=== PATIENT | female | born 1955 | race African-American/Black ===

== ENCOUNTER 2018-02-27 01:34 | Emergency (ER) | payer OTHER ==
[~2018-02-27] VITALS: Ht 165.1 cm; Wt 72.6 kg
[2018-02-27] MEDS ORDERED: Sodium Chloride 500ML 500 ML IV ONE (01:38)
[2018-02-27 01:43] VITALS: BP 122/72
[2018-02-27] MEDS ORDERED: DILANTIN100 MG ORAL (01:43)
--- NOTE | 2018-02-27 01:50 | NUR ---
ED Nurse Note: PT WAS Brought in by ra [facility] from home c/o anxiety attack. pt stated she is hearing beeping noice x 30 mins and inability to sleep. pt states no suicidal intent, no harm to self, no harm to others.
[2018-02-27 02:14] LABS: APPEARANCE,URINE CLEAR; BASOPHILS % (AUTO) 0.7 % (0.0-2.0); BILIRUBIN, URINE NEGATIVE (NEGATIVE); COLOR,URINE PALE YELLOW; EOSINOPHILS % (AUTO) 3.5 % (0.0-3.0); GLUCOSE, URINE (UA) NEGATIVE (NEGATIVE); HEMATOCRIT 43.6 % (37.0-47.0); HEMOGLOBIN 14.8 G/DL (12.0-16.0); KETONES,URINE 1+ (NEGATIVE); LEUKOCYTE ESTERASE ,URINE 1+ (NEGATIVE); LYMPHOCYTES % (AUTO) 43.4 % (20.0-45.0); MEAN CORPUSCULAR VOLUME 98 FL (80-99); NEUTROPHILS % (AUTO) 43.4 % (45.0-75.0); NITRITE,URINE NEGATIVE (NEGATIVE); PH,URINE 8 (4.5-8.0); PLATELET COUNT 234 K/UL (150-450); PROTEIN,URINE NEGATIVE (NEGATIVE); RED BLOOD COUNT 4.45 M/UL (4.20-5.40); RED CELL DISTRIBUTION WIDTH 12.5 % (11.6-14.8); UROBILINOGEN,URINE NORMAL MG/DL (0.0-1.0)
[2018-02-27 02:26] LABS: ANION GAP 8 mmol/L (5-15); BLOOD UREA NITROGEN 11 mg/dL (7-18); CALCIUM 8.9 MG/DL (8.5-10.1); CARBON DIOXIDE 28 MMOL/L (21-32); CHLORIDE 106 MMOL/L (98-107); CREATININE 0.7 MG/DL (0.55-1.30); POTASSIUM 3.2 MMOL/L (3.5-5.1); SODIUM 142 MMOL/L (136-145)
[2018-02-27 02:30] LABS: ALANINE AMINOTRANSFERASE 24 U/L (12-78); ALBUMIN 3.8 G/DL (3.4-5.0); ALBUMIN/GLOBULIN RATIO 1.1 (1.0-2.7); ALKALINE PHOSPHATASE 144 U/L (46-116); ASPARTATE AMINO TRANSFERASE 16 U/L (15-37); BILIRUBIN,TOTAL 0.3 MG/DL (0.2-1.0)
--- NOTE | 2018-02-27 02:55 | Emergency Room Report ---
History of Present Illness General Chief Complaint: Behavioral Complaint Source: Patient Present Illness HPI Patient is a 63-year-old female brought in by EMS after increased anxiety and ringing in her ears. Patient reports of increased ringing sensation. She was noted to be she was noted to have prior history of surgical repair of arteriovenous malformation. Patient was on Dilantin for seizures. She reports having some increased headache. Denies recent trauma.She reports being compliant with her medications. Allergies: Coded Allergies: No Known Allergies (Unverified , 02/27/18) Patient History Past Medical History: see triage record, seizures Last Menstrual Period: 10 years ago Now: No Reviewed Nursing Documentation: PMH: Agreed; PSxH: Agreed Nursing Documentation-PMH Hx Neurological Problems: Yes - avm Hx Seizures: Yes Review of Systems All Other Systems: negative except mentioned in HPI Physical Exam Vital Signs Date Time Temp Pulse Resp B/P (MAP) Pulse Ox O2 Delivery O2 Flow Rate FiO2 02/27/18 01:39 97.9 92 24 122/72 98 Room Air 02/27/18 01:43 99 Sp02 EP Interpretation: reviewed, normal General Appearance: normal inspection, well appearing, no apparent distress, alert, GCS 15, non-toxic Head: atraumatic ENT: normal ENT inspection, hearing grossly normal, normal voice Neck: normal inspection, full range of motion, supple, no bony tend Respiratory: normal inspection, lungs clear, normal breath sounds, no respiratory distress, no retraction, no wheezing Cardiovascular #1: regular rate, rhythm, no edema Gastrointestinal: normal inspection, normal bowel sounds, non tender, soft, no guarding, no hernia Genitourinary: no CVA tenderness Musculoskeletal: normal inspection, back normal, normal range of motion Neurologic: normal inspection, alert, oriented x3, responsive, tick inspector III-XII nml as tested, speech normal Psychiatric: judgement/insight normal, mood/affect normal, anxious Skin: normal inspection, normal color, no rash Medical Decision Making Diagnostic Impression: Primary Impression: Headache Additional Impressions: AVM (arteriovenous malformation) Seizure disorder ER Course Patient presented for headache and ringing in her ears.. The differential diagnosis included was not limited to partial seizure, intracranial hemorrhage, anxiety, anemia among others. Because of complexity of patient's case laboratory testing and imaging studies were ordered. EKG interpreted by me showed normal sinus rhythm with a rate of [address] or T wave changes.Laboratory testing showed therapeutic Dilantin level.Patient was noted to be mildly hypokalemic was given oral potassium.Patient was noted to have increased anxiety. This resolved spontaneously. Patient was given some IV fluids. She was noted to have improvement in her symptoms. Patient calmed down her breathing and stated that she felt better. Patient was observed in the emergency department and had no recurrence of symptoms. Patient be discharged home. She is advised to follow-up with her neurologist for adjustment of her Dilantin as needed. CT imaging of the head read by radiology showed no evidence of intracranial hemorrhage with postsurgical changes and prior arteriovenous malformation changes.Patient be discharged home she is currently in stable condition. Labs Test 02/27/18 02:03 White Blood Count 4.0 K/UL (4.8-10.8) Red Blood Count 4.45 M/UL (4.20-5.40) Hemoglobin 14.8 G/DL (12.0-16.0) Hematocrit 43.6 % (37.0-47.0) Mean Corpuscular Volume 98 FL (80-99) Mean Corpuscular Hemoglobin 33.3 PG (27.0-31.0) Mean Corpuscular Hemoglobin Concent 34.0 G/DL (32.0-36.0) Red Cell Distribution Width 12.5 % (11.6-14.8) Platelet Count 234 K/UL (150-450) Mean Platelet Volume 6.3 FL (6.5-10.1) Neutrophils (%) (Auto) 43.4 % (45.0-75.0) Lymphocytes (%) (Auto) 43.4 % (20.0-45.0) Monocytes (%) (Auto) 9.0 % (1.0-10.0) Eosinophils (%) (Auto) 3.5 % (0.0-3.0) Basophils (%) (Auto) 0.7 % (0.0-2.0) Urine Color Pale yellow Urine Appearance Clear Urine pH 8 (4.5-8.0) Urine Specific [place] 1.010 (1.005-1.035) Urine Protein Negative (NEGATIVE) Urine Glucose (UA) Negative (NEGATIVE) Urine Ketones 1+ (NEGATIVE) Urine Blood Negative (NEGATIVE) Urine Nitrite Negative (NEGATIVE) Urine Bilirubin Negative (NEGATIVE) Urine Urobilinogen Normal MG/DL (0.0-1.0) Urine Leukocyte Esterase 1+ (NEGATIVE) Urine RBC 0 /HPF (0 - 2) Urine WBC 0-2 /HPF (0 - 2) Urine Squamous Epithelial Cells Few /LPF (NONE/OCC) Urine Bacteria None /HPF (NONE) Sodium Level 142 MMOL/L (136-145) Potassium Level 3.2 MMOL/L (3.5-5.1) Chloride Level 106 MMOL/L (98-107) Carbon Dioxide Level 28 MMOL/L (21-32) Anion Gap 8 mmol/L (5-15) Blood Urea Nitrogen 11 mg/dL (7-18) Creatinine 0.7 MG/DL (0.55-1.30) Estimat Glomerular Filtration Rate > 60 mL/min (>60) Glucose Level 119 MG/DL (74-106) Calcium Level 8.9 MG/DL (8.5-10.1) Total Bilirubin 0.3 MG/DL (0.2-1.0) Aspartate Amino Transf (AST/SGOT) 16 U/L (15-37) Alanine Aminotransferase (ALT/SGPT) 24 U/L (12-78) Alkaline Phosphatase 144 U/L (46-116) Total Protein 7.3 G/DL (6.4-8.2) Albumin 3.8 G/DL (3.4-5.0) Globulin 3.5 g/dL Albumin/Globulin Ratio 1.1 (1.0-2.7) Phenytoin (Dilantin) Level 16.9 ug/mL (10-20) EKG Diagnostic Results Rate: normal Rhythm: NSR ST Segments: no acute changes Last Vital Signs Date Time Temp Pulse Resp B/P (MAP) Pulse Ox O2 Delivery O2 Flow Rate FiO2 02/27/18 01:43 92 24 Room Air 99 02/27/18 01:43 97.9 122/72 98 Status: improved Disposition: HOME, SELF-CARE Referrals: [facility] (PCP) Taco Hernandez MD Feb 27, 2018 02:54
[2018-02-27 03:40] VITALS: BP 125/73
[2018-02-27 04:34] VITALS: BP 120/71
[2018-02-27 04:35] VITALS: BP 120/71
--- NOTE | 2018-02-27 04:36 | NUR ---
ED Nurse Note: PT is Dc per ERMD orders PT vital signs, status and condition reported to ERMD prior to Dc. pt is stable for Dc. pt is alert and orientated times 4. no skin trauma noted in ER. pt has left with all belongings as well as DC notes and presacriptions. pt is able to understand all DC info and teach back info. pt is instructed to follow up with main provider as soon as possible as well as report back to ER as soon as possible for reoccurance of symptoms. pt is able to ambulate with steady gait. IV and ID band removed.
--- NOTE | 2018-02-27 09:19 | Diagnostic Imaging Report ---
Indication: Headache Technique: Contiguous 5 mm thick transaxial imaging of the head obtained in a Siemens Sensation [address] scanner. Soft tissue and bone windows generated. Automatic Exposure Control was utilized. Total Dose length Product (DLP): 1347.[address] Dose Index Volume (CTDIvol): 70.38 mGy Comparison: none Findings: Signs of previous surgery with curvilinear metallic foci in the right frontal lobe and a prominent metallic focus centered about the pineal region. Extensive streak artifact limits evaluation. There is right frontal encephalomalacia noted. There is no obvious intracranial bleed, mass effect or edema. The ventricles appear normal in size. The basal cisterns are not well seen but as visualized appear normal. IMPRESSION: Encephalomalacia right frontal lobe with evidence of previous surgery and/or endovascular coiling. Correlate with the procedural history. Limited evaluation due to streak artifact. No obvious evidence for acute intracranial hemorrhage, mass effect or edema. [facility] has communicated the preliminary results to the Emergency Department. Their findings are largely concordant with this report. The CT scanner at [facility] is accredited by the [employer] and the scans are performed using dose optimization techniques as appropriate to a performed exam including Automatic Exposure control.
--- NOTE | 2018-02-27 15:39 | Cardiology Report ---
APPROVED REPORT EKG Measurement Heart [id number] ME [id number] Normal sinus rhythm Normal ECG
== END 2018-02-27 04:39 | disposition home or self-care (01) ==
LOC: EDBD 01:34 → EMR 02:00
DX: R51 Headache (principal); Q27.30 Arteriovenous malformation, site unspecified; G40.909 Epilepsy, unspecified, not intractable, without status epilepticus; G93.89 Other specified disorders of brain
CPT/HCPCS: 36415; 70450; 80053; 80185; 81003; 85025; 93005; 99284; J7040; J8499